=== PATIENT | male | born 1960 | race African-American/Black ===

== ENCOUNTER 2017-03-28 09:44 | Day surgery (SDC) | payer BC ==
[2017-03-27 10:55] VITALS: Ht 175.3 cm; Wt 72.0 kg
[~2017-03-28] VITALS: Ht 175.3 cm; Wt 72.0 kg
[2017-03-28 11:25] VITALS: BP 119/81; PULSE 70; RESP 16
--- NOTE | 2017-03-28 11:36 | HPN ---
Date/Time of Note Date/Time of Note DATE: 03/28/17 TIME: 11:36 Interval H&P Admission Note Pt. seen H&P reviewed: No system changes TIARRA ORTIZ MD Mar 28, 2017 11:36
[2017-03-28 11:40] LABS: ADD SCAN DIFF NO
[2017-03-28] MEDS ORDERED: [UNRECOGNIZED DRUG - CODE] (11:56)
[2017-03-28] MEDS ORDERED: API (11:56)
[2017-03-28] MEDS ORDERED: NPH SQ (11:56)
[2017-03-28] MEDS ORDERED: CALC667C PO (11:56)
[2017-03-28] MEDS ORDERED: INSU100I17 SQ (11:56)
[2017-03-28] MEDS ORDERED: HYDR10TA36 PO (11:56)
[2017-03-28] MEDS ORDERED: DIPH1TAB25 PO (11:56)
[2017-03-28] MEDS ORDERED: ASPI-664 PO (11:56)
[2017-03-28] MEDS ORDERED: NEPH PO (11:56)
[2017-03-28] MEDS ORDERED: DILT120C62 PO (11:56)
[2017-03-28] MEDS ORDERED: FURO40TA4 PO (11:56)
[2017-03-28 12:01] LABS: ABNORMAL IP MESSAGE 1; BASOPHILS % 0.5 % (0.0-2.0); EOSINOPHILS # 0.3 10^3/ul (0.0-0.5); EOSINOPHILS % 4.1 % (0.0-7.0); HEMATOCRIT 34.1 % (42.0-52.0); HEMOGLOBIN 10.6 g/dl (14.0-18.0); LYMPHOCYTES # 3.3 10^3/ul (0.8-2.9); LYMPHOCYTES % 40.4 % (15.0-51.0); MEAN CORPUSCULAR HEMOGLOBIN 29.9 pg (29.0-33.0); MEAN CORPUSCULAR HGB CONC 31.1 g/dl (32.0-37.0); MEAN CORPUSCULAR VOLUME 96.3 fl (82.0-101.0); MEAN PLATELET VOLUME 10.3 fl (7.4-10.4); MONOCYTES % 11.9 % (0.0-11.0); NEUTROPHIL # 3.5 10^3/ul (1.6-7.5); NEUTROPHILS % 42.5 % (39.0-77.0); NUCLEATED RED BLOOD CELLS # 0.8 10^3/ul (0.0-0.0); NUCLEATED RED BLOOD CELLS% 9.3 /100WBC (0.0-0.0); PLATELET COUNT 194 10^3/UL (140-415); RED BLOOD COUNT 3.54 10^6/ul (4.70-6.10); RED CELL DISTRIBUTION WIDTH 22.8 % (11.5-14.5); WHITE BLOOD COUNT 8.2 10^3/ul (4.8-10.8)
[2017-03-28 12:05] LABS: ALBUMIN 4.4 g/dl (3.3-4.9); ALBUMIN/GLOBULIN RATIO 1.22
[2017-03-28 12:07] LABS: CALCIUM 8.4 mg/dl (8.4-10.2); CREATININE 6.62 mg/dl (0.61-1.24)
[2017-03-28 12:08] LABS: INR 1.15; POTASSIUM 5.7 mmol/L (3.5-5.1); PROTIME 14.7 Sec (12.2-14.2); PT RATIO 1.1
[2017-03-28] MEDS ORDERED: DEXTROSE 50% 50 ML SYRINGE ONE (13:39)
[2017-03-28] MEDS ORDERED: DEXTROSE 50% 50 ML SYRINGE IV ONE (14:00)
[2017-03-28 14:10] LABS: PARTIAL THROMBOPLASTIN TIME 35.2 Sec (25.0-35.0)
[2017-03-28 14:58] VITALS: BP 143/105; PULSE 72; RESP 16
--- NOTE | 2017-03-29 17:00 | RADRPT ---
Vent Rate: 65 bpm RR Interval: 0 msec MT Interval: 136 msec QRS Duration: 84 msec QT Interval: 476 msec QTC Interval: 495 msec P-R-T [place]: 63 - 34 - 16 degrees Normal sinus rhythm Abnormal ECG Nonspecific ST-T changes No previous tracing available for comparison Electronically Signed By: Diego Keller [id number]
== END 2017-03-28 15:05 | disposition home or self-care (01) ==
LOC: SDS 09:44
PROVIDERS: ATTEND Surgery Vascular Surgery
DX: I12.0 Hypertensive chronic kidney disease with stage 5 chronic kidney disease or end stage renal disease (principal); N18.6 End stage renal disease; Z53.9 Procedure and treatment not carried out, unspecified reason; E11.9 Type 2 diabetes mellitus without complications
CPT/HCPCS: 80053; 82962; 85025; 85610; 85730; 93005; Z7610

== ENCOUNTER 2017-06-13 08:15 | Day surgery (SDC) | payer BC ==
[~2017-06-13] VITALS: Ht 175.3 cm; Wt 53.0 kg
[2017-06-13] VITALS (7 sets, daily range): BP systolic 127–150; BP diastolic 87–98; PULSE 61–71; RESP 13–26; Ht 175.3 cm; Wt 53.0 kg
[~2017-06-13 08:15] MED LIST: API; ASPI-664 PO; CALC667C PO; CEFAZOLIN 1 GM INJ ONE; DILT120C62 PO; DIPH1TAB25 PO; FURO40TA4 PO; HYDR10TA36 PO; INSU100I17 SQ; LIDOCAINE 2% (SDV) 5 ML INJ ONE; NEPH PO; NPH SQ; [UNRECOGNIZED DRUG - CODE]
--- NOTE | 2017-06-13 09:06 | HPN ---
Date/Time of Note Date/Time of Note DATE: 06/13/17 TIME: 09:05 Interval H&P Admission Note Pt. seen H&P reviewed: No system changes TIARRA ORTIZ MD Jun 13, 2017 09:05
[2017-06-13] MEDS ORDERED: VIT1TABL46 PO (09:21)
[2017-06-13] MEDS ORDERED: FURO40TA4 PO (09:21)
[2017-06-13] MEDS ORDERED: DILT120C65 PO (09:21)
[2017-06-13] MEDS ORDERED: GABA300C16 PO (09:22)
[2017-06-13] MEDS ORDERED: HYDR-3670 PO (09:22)
[2017-06-13] MEDS ORDERED: THROMBIN 5000 UNIT VIAL ONE ×2 (09:23→09:24)
[2017-06-13] MEDS ORDERED: LIDOCAINE 1% (MPF) 30 ML INJ ONE (09:23)
[2017-06-13] MEDS ORDERED: HEPARIN 1000 UNITS/ML 10 ML INJ ONE (09:23)
[2017-06-13] MEDS ORDERED: GELATIN SIZE 100 SPONGE ONE (09:23)
[2017-06-13] MEDS ORDERED: HEPARIN 1000 UNITS/ML 10 ML INJ IRR ONE (09:37)
--- NOTE | 2017-06-13 09:57 | RADRPT ---
PROCEDURE: Chest Radiograph. CLINICAL INDICATION: Preop TECHNIQUE: Single frontal chest radiograph. COMPARISON: None available FINDINGS: A right chest wall tunneled hemodialysis catheter is in place with distal tip in the region of the c avoatrial junction. Heart size is within normal limits. Atherosclerotic calcifications are present . No infiltrate or effusion is seen. The bones are intact. IMPRESSION: 1. No evidence of acute cardiopulmonary disease. 2. Atherosclerotic vascular disease. RPTAT: KK .Rodrick Teran MD, Date Time Electronically viewed and signed by .Rodrick Teran MD, on 06/13/2017 09:57 .B/
[2017-06-13] MEDS ORDERED: DEXTROSE 50% 50 ML SYRINGE IV ONE (10:00)
[2017-06-13] MEDS ORDERED: APIDRA (10:01)
[2017-06-13] MEDS ORDERED: LANTUS (10:01)
[2017-06-13 10:09] LABS: BASOPHILS % 0.4 % (0.0-2.0); EOSINOPHILS # 0.1 10^3/ul (0.0-0.5); HEMATOCRIT 35.9 % (42.0-52.0); HEMOGLOBIN 11.5 g/dl (14.0-18.0); INR 0.97; LYMPHOCYTES # 2.8 10^3/ul (0.8-2.9); LYMPHOCYTES % 29.3 % (15.0-51.0); MEAN CORPUSCULAR VOLUME 90.4 fl (82.0-101.0); MEAN PLATELET VOLUME 11.2 fl (7.4-10.4); MONOCYTES % 10.3 % (0.0-11.0); NEUTROPHILS % 58.7 % (39.0-77.0); PARTIAL THROMBOPLASTIN TIME 34.2 Sec (25.0-35.0); PLATELET COUNT 190 10^3/UL (140-415); PROTIME 12.9 Sec (12.2-14.2); RED BLOOD COUNT 3.97 10^6/ul (4.70-6.10); RED CELL DISTRIBUTION WIDTH 19.1 % (11.5-14.5); WHITE BLOOD COUNT 9.5 10^3/ul (4.8-10.8)
[2017-06-13 10:12] LABS: ALBUMIN 3.8 g/dl (3.3-4.9); ALBUMIN/GLOBULIN RATIO 0.84; TOTAL PROTEIN 8.3 g/dl (6.1-8.1)
[2017-06-13 10:22] LABS: CALCIUM 8.6 mg/dl (8.4-10.2); CREATININE 6.71 mg/dl (0.61-1.24); POTASSIUM 4.2 mmol/L (3.5-5.1)
[2017-06-13] MEDS ORDERED: LIDOCAINE 2%/EPI 30 ML INJ ONE (10:28)
[2017-06-13] MEDS ORDERED: FENTAnyl 50 MCG/ML VIAL ONE (10:28)
[2017-06-13] MEDS ORDERED: ROPIVACAINE 0.5 % 30 ML VIAL ONE (10:28)
[2017-06-13] MEDS ORDERED: hydrALAzine 20 MG INJ ONE (10:56)
[2017-06-13] MEDS ORDERED: FENTAnyl 50 MCG/ML VIAL IV PRN (11:30)
[2017-06-13] MEDS ORDERED: hydrALAzine 20 MG INJ IV PRN (11:30)
[2017-06-13] MEDS ORDERED: DIPHENHYDRAMINE 50 MG INJ IV PRN (11:30)
[2017-06-13] MEDS ORDERED: ONDANSETRON 4 MG INJ IV PRN (11:30)
[2017-06-13] MEDS ORDERED: ALBUTEROL 0.083% (NEB) 2.5 MG/3 ML AMP HHN PRN (11:30)
[2017-06-13] MEDS ORDERED: MEPERIDINE 25 MG INJ IV PRN (11:30)
--- NOTE | 2017-06-13 12:16 | SIPON ---
Date/Time of Note Date/Time of Note DATE: 06/13/17 TIME: 12:10 Operative Report Preoperative Diagnosis ESRD Postoperative Diagnosis same Operation/Procedure Performed L arm brachiobasilic AVF creation Surgeon: TIARRA ORTIZ MD Anesthesia Type: other Estimated Blood Loss: 50 - 100 ml's Transfusion Required: no Specimen: none Grafts/Implants: none Complications: no TIARRA ORTIZ MD Jun 13, 2017 12:16
--- NOTE | 2017-06-13 13:22 | OPR ---
DATE OF OPERATION: 06/13/2017 PREOPERATIVE DIAGNOSIS: End-stage renal disease. POSTOPERATIVE DIAGNOSIS: End-stage renal disease. OPERATION PERFORMED: Creation of left arm brachial basilic arteriovenous fistula. SURGEON: Dr. Jason Noonan. ANESTHESIA: A scalene block. ESTIMATED BLOOD LOSS: 50 cc. COMPLICATIONS: No intraprocedural complications. INDICATIONS: This is a 56-year-old gentleman with end-stage renal disease, hypertension. He is on dialysis via PermCath. We had his mapped the vein from his left arm. His veins are not usable except for the upper arm basilic vein, some are all sclerotic. I brought him today for creation of left brachial basilic AV fistula as a 1st stage and he will need superficialization of the vein at a later date once the vein has matured and I discussed that with he and his prior procedure. OPERATIVE PROCEDURE: Patient was brought into the operating room, and placed on the table in supine position. After placement of a scalene block, the left arm was prepped and draped in usual sterile fashion. I made an incision beginning over the brachial artery at the elbow and extending it medially on top of the basilic vein in the very lower portion of the upper arm. I carefully dissected out the basilic vein and ligated it distally with surgical clips and divided it. I cut the connective tissue overlying the brachial artery pulse. I clamped the brachial artery proximally and distally, made an 8 mm long anterior arteriotomy, spatulated the end of the vein to fit the arteriotomy and then anastomosed the end of the vein inside of the artery using 6-0 Prolene suture in a running standard vascular surgical fashion. I removed the clamps. There was a good thrill. There was good hemostasis. I closed the skin incision in 2 layers using an inner layer of 3-0 Vicryl and an outer layer of 4-0 Monocryl subcuticular suture. Sterile dressing was applied. The patient was then transferred to recovery room in stable condition. Tolerated procedure well without complication. Hand was warm and pink. There was good radial pulse. Dictated By: Jason Noonan MD /sara/andrew /Document#: [id number]
--- NOTE | 2017-06-13 17:13 | RADRPT ---
Vent Rate: 67 bpm RR Interval: 0 msec AR Interval: 140 msec QRS Duration: 88 msec QT Interval: 474 msec QTC Interval: 500 msec P-R-T [place]: 77 - 43 - 45 degrees Normal sinus rhythm Prolonged QT Abnormal ECG Electronically Signed By: Pastor Carvalho [id number]
== END 2017-06-13 13:30 | disposition home or self-care (01) ==
LOC: SDS 08:15
PROVIDERS: ATTEND Surgery Vascular Surgery
DX: I12.0 Hypertensive chronic kidney disease with stage 5 chronic kidney disease or end stage renal disease (principal); N18.6 End stage renal disease; E11.9 Type 2 diabetes mellitus without complications
CPT/HCPCS: 36821; 71010; 80053; 82962; 85025; 85610; 85730; 93005; J0360; J0690; J1644; J2795; J3010; Z7512; Z7610; C1725

== ENCOUNTER 2017-09-26 09:12 | Inpatient (IN) | payer BC ==
[2017-09-26] VITALS (15 sets, daily range): BP systolic 122–188; BP diastolic 61–102; PULSE 59–77; RESP 16–20; Ht 175.3 cm; Wt 55.7 kg
[~2017-09-26] VITALS: Ht 175.3 cm; Wt 55.7 kg
[~2017-09-26 09:12] MED LIST changes: -API; +APIDRA; -ASPI-664 PO; -CALC667C PO; -CEFAZOLIN 1 GM INJ ONE; -DILT120C62 PO; +DILT120C65 PO; -DIPH1TAB25 PO; +GABA300C16 PO; +HYDR-3670 PO; -HYDR10TA36 PO; -INSU100I17 SQ; +LANTUS; -LIDOCAINE 2% (SDV) 5 ML INJ ONE; -NEPH PO; -NPH SQ; +VIT1TABL46 PO; -[UNRECOGNIZED DRUG - CODE]
[2017-09-26] MEDS ORDERED: NOVO3I SC (10:24)
--- NOTE | 2017-09-26 10:28 | RADRPT ---
PROCEDURE: XR Chest. CLINICAL INDICATION: Preoperative TECHNIQUE: Single frontal view of the chest was obtained COMPARISON: CHEST 06/13/2017 FINDINGS: The heart and mediastinum are within normal limits. There is a right-sided Perma-Cath in place. There is mild right lower lobe linear atelectasis. The lungs are otherwise clear. There is no pleural effusion or pneumothorax. RPTAT: AA IMPRESSION: No acute disease. Mild right lower lobe linear atelectasis. .Daryl Leone MD, Date Time Electronically viewed and signed by .Daryl Leone MD, on 09/26/2017 10:28 .S/
[2017-09-26 10:50] LABS: BASOPHILS % 0.5 % (0.0-2.0); EOSINOPHILS % 0.6 % (0.0-7.0); HEMATOCRIT 27.8 % (42.0-52.0); HEMOGLOBIN 8.9 g/dl (14.0-18.0); LYMPHOCYTES % 30.2 % (15.0-51.0); MEAN CORPUSCULAR HEMOGLOBIN 29.9 pg (29.0-33.0); MEAN CORPUSCULAR VOLUME 93.3 fl (82.0-101.0); MEAN PLATELET VOLUME 12.7 fl (7.4-10.4); MONOCYTE # 0.9 10^3/ul (0.3-0.9); MONOCYTES % 13.6 % (0.0-11.0); NEUTROPHIL # 3.6 10^3/ul (1.6-7.5); NEUTROPHILS % 54.6 % (39.0-77.0); PLATELET COUNT 124 10^3/UL (140-415); RED BLOOD COUNT 2.98 10^6/ul (4.70-6.10); WHITE BLOOD COUNT 6.6 10^3/ul (4.8-10.8)
[2017-09-26] MEDS ORDERED: FURO40TA4 PO (10:50)
[2017-09-26] MEDS ORDERED: HYDR-3670 PO (10:50)
[2017-09-26] MEDS ORDERED: GABA300C16 PO (10:50)
[2017-09-26 11:00] LABS: HOLD TRANSMISSIONS 1
[2017-09-26] MEDS ORDERED: INSULIN ASPART [NOVOLOG] 3 ML PEN SC ONE ×2 (11:00→12:30)
[2017-09-26 11:06] LABS: INR 1.13; PROTIME 14.7 Sec (11.9-14.9); PT RATIO 1.1
[2017-09-26 11:10] LABS: ALBUMIN 2.8 g/dl (3.3-4.9); ALBUMIN/GLOBULIN RATIO 0.8; BILIRUBIN,INDIRECT 0.1 mg/dl (0-1.1); BILIRUBIN,TOTAL 0.1 mg/dl (0.2-1.3); TOTAL PROTEIN 6.3 g/dl (6.1-8.1)
[2017-09-26 11:18] LABS: POTASSIUM 4.5 mmol/L (3.5-5.1)
[2017-09-26 11:19] LABS: CALCIUM 7.6 mg/dl (8.4-10.2); CREATININE 9.97 mg/dl (0.61-1.24)
[2017-09-26 11:23] LABS: PARTIAL THROMBOPLASTIN TIME 38.8 Sec (25.0-35.0)
[2017-09-26] MEDS ORDERED: INSULIN REGULAR, HUMAN 100 UNIT/1 ML 3ML VIAL ONE (11:59)
[2017-09-26] MEDS ORDERED: LIDOCAINE 1% (MPF) 30 ML INJ INJ ONE (12:00)
[2017-09-26] MEDS ORDERED: HEPARIN 1000 UNITS/ML 10 ML INJ IRR ONE ×2 (12:00→13:01)
[2017-09-26] MEDS ORDERED: ROPIVACAINE 0.2% 20 ML VIAL ONE (12:09)
[2017-09-26] MEDS ORDERED: MIDAZOLAM 1 MG/ML 2 ML INJ ONE (12:09)
[2017-09-26] MEDS ORDERED: PROPOFOL 20 ML ONE ×2 (12:24→13:10)
[2017-09-26] MEDS ORDERED: FENTAnyl 50 MCG/ML VIAL ONE (12:44)
[2017-09-26] MEDS ORDERED: CEFAZOLIN 1 GM INJ ONE (13:10)
[2017-09-26] MEDS ORDERED: LIDOCAINE 1% (MPF) 30 ML INJ ONE (13:20)
[2017-09-26] MEDS ORDERED: HEPARIN 1000 UNITS/ML 10 ML INJ ONE (13:20)
[2017-09-26] MEDS ORDERED: LABETALOL HCL 20MG INJ IV PRN (13:30)
[2017-09-26] MEDS ORDERED: HYDROmorphONE (0.2 MG/ML) 10ML SYG IV PRN ×3 (13:30)
[2017-09-26] MEDS ORDERED: hydrALAzine 20 MG INJ IV PRN (13:30)
[2017-09-26] MEDS ORDERED: ONDANSETRON 4 MG INJ IV PRN ×2 (13:30→15:30)
--- NOTE | 2017-09-26 13:39 | SIPON ---
Date/Time of Note Date/Time of Note DATE: 09/26/17 TIME: 13:38 Operative Report Preoperative Diagnosis ESRD Postoperative Diagnosis same Operation/Procedure Performed L arm AV graft creation Surgeon see signature line shop assistant none Anesthesia: MAC Estimated blood loss: 10 - 50 ml's Transfusion Required none Specimen none Grafts/Implants 6mm Artegraft Complications none TIARRA ORTIZ MD Sep 26, 2017 13:39
--- NOTE | 2017-09-26 14:07 | OPR ---
DATE OF OPERATION: 09/26/2017 PREOPERATIVE DIAGNOSIS: End-stage renal disease. POSTOPERATIVE DIAGNOSIS: End-stage renal disease. PROCEDURE PERFORMED: Creation of left upper arm AV graft. SURGEON: Tiarra Noonan MD ANESTHESIA: Regional block with some local. ESTIMATED BLOOD LOSS: Minimal. COMPLICATIONS: No intraprocedural complications. INDICATIONS: This is a 57-year-old diabetic hypertensive gentleman with end-stage renal disease on dialysis via a Perm-A-Cath. He has a failed left arm AV fistula. I brought him in today for creati on of a left arm AV graft. PROCEDURE: The patient was brought to the operating room and placed on the table in supine position . Left arm was prepped and draped in the usual sterile fashion. I made 2 incisions in the upper ar m, one just above the elbow longitudinally over the brachial artery and one in the upper arm over th e axillary vein. I gave him about 10 mL of 1% Xylocaine in the skin prior to making the incisions. I then dissected out the brachial artery just above the elbow. There was a good artery, soft, good caliber. In the upper arm I dissected out the axillary vein, it was a good 5-6 mm vein that was pa tent. I then tunneled a 6 mm Artegraft between the 2 incisions over the bicep more anterior and lat erally using a Nan-Wick tunneler. I did the venous anastomosis first. I clamped the axillary vei n proximally and distally, made about a centimeter of the half long venotomy. Spatulated the end of the graft to fit the venotomy and then anastomosed the distal end of the graft to the side of the v ein using 6-0 Prolene suture in a running standard vascular surgical fashion. I removed the clamps. There was good backflow and it flushed easily. I then directed my attention to the arterial limb. I clamped the brachial artery proximally and distally and made an anterior arteriotomy 8 mm in [facility]. I then cut the end of the graft to fit the arteriotomy and then anastomosed the proximal end o f the graft to the side of the artery using 6-0 Prolene suture in a running standard vascular surgic al fashion. I removed the clamps. There was a good thrill. There was good hemostasis. I closed t he skin incision in 2 layers using an inner layer of 3-0 Vicryl and an outer layer of 4-0 Monocryl s ubcuticular sutures. Sterile dressing was applied and the patient was then transferred to recovery room in stable condition. He tolerated the procedure well without any complications. His sugars lyn ve been persistently elevated so I am going to ask the hospitalist to admit him and get his blood cueto gars under control. Dictated By: TIARRA BISHOP/MONICA Conf#: [id number] DID#: [id number]
[2017-09-26] MEDS ORDERED: HYDROCODONE/APAP (5/325) TAB PO PRN (15:30)
[2017-09-26] MEDS ORDERED: DOCUSATE SODIUM 100 MG CAP PO PRN (15:30)
[2017-09-26] MEDS ORDERED: morphine 2 MG INJ IV PRN (15:30)
[2017-09-26] MEDS ORDERED: NACL 0.9% 3 ML SYG IV SCH (15:30)
[2017-09-26] MEDS ORDERED: ACETAMINOPHEN 325 MG TAB PO PRN (15:30)
--- NOTE | 2017-09-26 15:31 | HP ---
Date/Time of Note Date/Time of Note DATE: 09/26/17 TIME: 15:23 Assessment/Plan VTE Prophylaxis VTE Prophylaxis Intervention: SCD's Lines/Catheters IV Catheter Type (from Nrs): Peripheral IV Assessment/Plan Chief Complaint/Hosp Course 1. 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 Diabetes-sugars out of control Check an A1c Will start weight-based insulin Sliding scale 3. Hypertension Resume home hydralazine 4. Anemia likely secondary to end-stage renal disease Monitor Prophylaxis: SCDs Problems: HPI/ROS Admit Date/Time Admit Date/Time Sep 26, 2017 at 14:03 Hx of Present Illness Patient is 57-year-old male with a history of insulin dependent diabetes, hypertension as well as end-stage renal disease on dialysis for several years now. Patient receives dialysis Tuesdays and Saturdays, patient does have a history of failed fistula placement and had a repeat AV fistula placement with vascular surgery today. Patient has been receiving dialysis via permacath, he is a poor historian and history is obtained from his sister who was bedside. Patient's sugars are notably elevated in the recovery room, patient has no complaints at this time. ROS Subjective hx not possible: other (Poor historian) PMH/Family/Social Past Medical History As per HPI Past Surgical History History of fistula placement 2 Family History Significant Family History: no pertinent family hx Social History Alcohol Use: heavy (History of heavy alcohol abuse) Smoking Status: Current every day smoker Drug Use: other (History of drug use exact drugs unknown) Exam/Review of Systems Vital Signs Vitals Vital Signs Date Time Temp Pulse Resp B/P Pulse Ox O2 Delivery O2 Flow Rate FiO2 09/26/17 13:53 97.6 09/26/17 11:57 62 16 158/102 99 Room Air Exam Constitutional: alert, frail Respiratory: clear to auscultation Cardiovascular: regular rate and rhythm Gastrointestinal: soft, No distended Musculoskeletal: nl extremities to inspection Labs Result Diagram: 09/26/17 1027 09/26/17 1027 TRAVIS ARMENTA Sep 26, 2017 15:31
[2017-09-26] MEDS: INSULIN ASPART [NOVOLOG] 3 ML PEN SC SCH ×3 (17:55→21:00)
[2017-09-26] MEDS ORDERED: INSULIN GLARGINE [LANtus] 3 ML PEN SC SCH (20:00)
[2017-09-26] MEDS ORDERED: Discontinue current oral sulfonylureas (glyburide, glipizide, and/or glimepiride) prior to XX ONE (22:00)
[2017-09-26] MEDS ORDERED: HYPOGLYCEMIA PROTOCOL when Glucose is <70 mg/dL or symptomatic <90 mg/dL. XX ONE (22:00)
[2017-09-26] MEDS ORDERED: GLUCOSE GEL 15 GRAM TUBE ONE (22:01)
[2017-09-26] MEDS: GABAPENTIN 300 MG CAP PO SCH (22:20)
[2017-09-26] MEDS ORDERED: DEXTROSE 50% 50 ML SYRINGE IV PRN ×2 (22:30)
[2017-09-26] MEDS ORDERED: GLUCAGON 1 MG INJ IM PRN (22:30)
[2017-09-26] MEDS ORDERED: GLUCOSE GEL 15 GRAM TUBE PO PRN ×2 (22:30)
[2017-09-26] MEDS ORDERED: GLUCOSE GEL 15 GRAM TUBE BUCCAL PRN (22:30)
[2017-09-27] VITALS (11 sets, daily range): BP systolic 105–163; BP diastolic 55–106; PULSE 69–75; RESP 18
[2017-09-27] MEDS ORDERED: ACCU-CHEK XX SCH ×2 (02:00)
--- NOTE | 2017-09-27 02:41 | CONS ---
DATE OF ADMISSION: 09/26/2017 DATE OF CONSULTATION: TYPE OF CONSULTATION: Nephrology. REASON FOR CONSULTATION: End-stage renal disease. PHYSICIAN REQUESTING CONSULT: Dr. Nichol Husain. HISTORY OF PRESENT ILLNESS: This is a 57-year-old male with a past medical history of end-stage mary jane al disease on dialysis Friday, , Friday. Last hemodialysis was Friday. History of diab etes, hypertension, who presents to [facility] for an AV fistula placement. The p atdiamond underwent surgical placement of AV graft in the left upper extremity by Dr. Noonan. Postopera tively, the patient was transferred to Med/Surg for further evaluation. The patient denies any acti ve chest pain, fevers, chills, nausea, vomiting. PAST MEDICAL HISTORY: History of hypertension, diabetes, end-stage renal disease. FAMILY HISTORY: Noncontributory. SOCIAL HISTORY: Does not drink, smoke or do drugs. MEDICATIONS: The patient's medications have been reviewed. REVIEW OF SYSTEMS: A 14-point review of systems was conducted. Pertinent positives stated in HPI, otherwise negative. PHYSICAL EXAMINATION: VITAL SIGNS: Blood pressure is 168/70, respirations 16, pulse 80. Temperature 97.6. HEENT: Head is normocephalic. NECK: Supple. HEART: Regular rate. LUNGS: Show diminished breath sounds at the base. ABDOMEN: Soft, nontender to palpation. No rebound or guarding. EXTREMITIES: Negative for clubbing, cyanosis, no edema. DERMATOLOGIC: No rashes. MUSCULOSKELETAL: No joint effusions. NEUROLOGIC: No focal deficits. LABORATORY DATA: Shows sodium 130, potassium 4.5, chloride 100, bicarbonate 14, BUN 36, creatinine 5.97, glucose is 690, white count 6.6, hemoglobin 9, hematocrit 27.8, platelets 124. ASSESSMENT AND PLAN: This is a 57-year-old male who presents with: 1. End-stage renal disease. The patient is on hemodialysis Friday, and Friday with acc ess of a PermCath. Last hemodialysis was Friday. Plan for dialysis today. Will dialyze for 3 grady rs on 3 K bath, calcium 2.5. Anticipate hemodialysis tomorrow. 2. Access. The patient is status post AV graft placement. 3. Hypertension. Continue current blood pressure regimen. We will ultrafiltrate with hemodialysis . 4. Anemia. Monitor hemoglobin and hematocrit levels. Will give Epogen as needed. 5. Mineral bone disorder. Continue to monitor calcium and phosphorus levels. Will give phosphate binders as needed. 6. Diabetes. Continue current insulin regimen. Thank you, Dr. Husain, for this interesting consult. It will be a pleasure to follow up patient wi th you throughout the hospital course. Dictated By: CRISTINE LOCKE DO NR/NTS Conf#: [id number] DID#: [id number] CC: NICHOL HUSAIN MD;*EndCC*
[2017-09-27 05:51] LABS: ABNORMAL IP MESSAGE 1; BASOPHILS % 0.5 % (0.0-2.0); EOSINOPHILS # 0.1 10^3/ul (0.0-0.5); EOSINOPHILS % 0.8 % (0.0-7.0); HEMATOCRIT 32.4 % (42.0-52.0); HEMOGLOBIN 11.1 g/dl (14.0-18.0); LYMPHOCYTES # 1.4 10^3/ul (0.8-2.9); LYMPHOCYTES % 21.4 % (15.0-51.0); MEAN CORPUSCULAR HEMOGLOBIN 30.2 pg (29.0-33.0); MEAN CORPUSCULAR HGB CONC 34.3 g/dl (32.0-37.0); MONOCYTE # 0.6 10^3/ul (0.3-0.9); MONOCYTES % 8.9 % (0.0-11.0); NEUTROPHIL # 4.4 10^3/ul (1.6-7.5); NEUTROPHILS % 68.1 % (39.0-77.0); PLATELET COUNT 89 10^3/UL (140-415); POSITIVE DIFF @See below; RED BLOOD COUNT 3.68 10^6/ul (4.70-6.10); RED CELL DISTRIBUTION WIDTH 18.4 % (11.5-14.5); WHITE BLOOD COUNT 6.4 10^3/ul (4.8-10.8)
[2017-09-27 06:00] LABS: CHOL/HDL RATIO 1.5 RATIO; CREATININE 7.2 mg/dl (0.61-1.24); MAGNESIUM 2.1 mg/dl (1.7-2.5); PHOSPHORUS 5.9 mg/dl (2.5-4.9); POTASSIUM 4.4 mmol/L (3.5-5.1)
[2017-09-27] MEDS ORDERED: FUROSEMIDE 40 MG TAB PO SCH (06:00)
[2017-09-27 06:15] LABS: MEAN PLATELET VOLUME 11.6 fl (7.4-10.4)
[2017-09-27] MEDS: GABAPENTIN 300 MG CAP PO SCH ×2 (09:05→13:03)
[2017-09-27] MEDS: INSULIN ASPART [NOVOLOG] 3 ML PEN SC SCH ×3 (09:10→13:08)
--- NOTE | 2017-09-27 09:12 | CONS ---
Date/Time of Note Date/Time of Note DATE: 09/27/17 TIME: 09:10 Consult Date/Type/Reason Admit Date/Time Sep 26, 2017 at 14:03 Initial Consult Date Subjective pt. seen and examined on hd this am PE: HEENT: Head is normocephalic. NECK: Supple. HEART: Regular rate. LUNGS: Show diminished breath sounds at the base. ABDOMEN: Soft, nontender to palpation. No rebound or guarding. EXTREMITIES: Negative for clubbing, cyanosis, no edema. DERMATOLOGIC: No rashes. MUSCULOSKELETAL: No joint effusions. NEUROLOGIC: No focal deficits. Objective Vital Signs Date Time Temp Pulse Resp B/P Pulse Ox O2 Delivery O2 Flow Rate FiO2 09/27/17 07:36 99.3 73 18 142/95 95 09/27/17 05:58 Room Air 09/26/17 16:30 2.0 Intake and Output 09/26/17 09/26/17 09/27/17 15:00 23:00 07:00 Intake Total 100 ml 700 ml 600 ml Output Total 20 ml 2500 ml Balance 80 ml -1800 ml 600 ml Results/Medications Result Diagram: 09/27/17 0434 09/27/17 0434 Results 24 hrs Laboratory Tests Test 09/26/17 10:27 09/26/17 11:54 09/26/17 12:46 09/26/17 13:06 White Blood Count 6.6 # Red Blood Count 2.98 #L Hemoglobin 8.9 #L Hematocrit 27.8 #L Mean Corpuscular Volume 93.3 Mean Corpuscular Hemoglobin 29.9 Mean Corpuscular Hemoglobin Concent 32.0 Red Cell Distribution Width 19.0 H Platelet Count 124 #L Mean Platelet Volume 12.7 H Neutrophils % 54.6 Lymphocytes % 30.2 Monocytes % 13.6 H Eosinophils % 0.6 Basophils % 0.5 Nucleated Red Blood Cells % 0.0 Neutrophils # 3.6 Lymphocytes # 2.0 Monocytes # 0.9 Eosinophils # 0.0 Basophils # 0.0 Nucleated Red Blood Cells # 0.0 CBC Results Faxed/Phoned 1 *H Prothrombin Time 14.7 Prothrombin Time Ratio 1.1 INR International Normalized Ratio 1.13 Activated Partial Thromboplast Time 38.8 H Sodium Level 130 L Potassium Level 4.5 Chloride Level 100 Carbon Dioxide Level 14 L Anion Gap 21 H Blood Urea Nitrogen 36 H Creatinine 9.97 H Glucose Level 690 *H Calcium Level 7.6 L Total Bilirubin 0.1 L Direct Bilirubin 0.00 Indirect Bilirubin 0.1 Aspartate Amino Transf (AST/SGOT) 23 Alanine Aminotransferase (ALT/SGPT) 40 Alkaline Phosphatase 114 Total Protein 6.3 Albumin 2.8 L Globulin 3.50 H Albumin/Globulin Ratio 0.80 Bedside Glucose 489 *H 484 *H 423 *H Test 09/26/17 13:49 09/26/17 14:23 09/26/17 17:42 09/26/17 21:54 Bedside Glucose 403 *H 389 H 108 39 *L Test 09/26/17 22:06 09/26/17 22:29 09/26/17 22:47 09/27/17 02:30 Bedside Glucose 38 *L 86 108 209 Test 09/27/17 04:34 09/27/17 08:38 White Blood Count 6.4 Red Blood Count 3.68 #L Hemoglobin 11.1 #L Hematocrit 32.4 L Mean Corpuscular Volume 88.0 Mean Corpuscular Hemoglobin 30.2 Mean Corpuscular Hemoglobin Concent 34.3 Red Cell Distribution Width 18.4 H Platelet Count 89 #L Mean Platelet Volume 11.6 H Neutrophils % 68.1 Lymphocytes % 21.4 Monocytes % 8.9 Eosinophils % 0.8 Basophils % 0.5 Nucleated Red Blood Cells % 0.0 Neutrophils # 4.4 Lymphocytes # 1.4 Monocytes # 0.6 Eosinophils # 0.1 Basophils # 0.0 Nucleated Red Blood Cells # 0.0 Sodium Level 137 Potassium Level 4.4 Chloride Level 105 Carbon Dioxide Level 21 Anion Gap 15 Blood Urea Nitrogen 24 #H Creatinine 7.20 #H Glucose Level 254 #H Hemoglobin A1c 10.3 H Calcium Level 8.0 L Phosphorus Level 5.9 H Magnesium Level 2.1 Triglycerides Level 105 Cholesterol Level 75 L LDL Cholesterol, Calculated 4 HDL Cholesterol 50 Cholesterol/HDL Ratio 1.5 Bedside Glucose 329 H Medications Current Medications Ondansetron HCl (Zofran Inj) 4 mg Q6H PRN IV NAUSEA AND/OR VOMITING; Start 09/26/17 at 15:30 Acetaminophen (Tylenol Tab) 650 mg Q6H PRN PO PAIN LEVEL 1-3 OR FEVER; Start 09/26/17 at 15:30 Acetaminophen/ Hydrocodone Bitart ([place] (5/325)) 1 tab Q6H PRN PO MODERATE PAIN LEVEL 4-6; Start 09/26/17 at 15:30 Morphine Sulfate (morphine) 2 mg Q4H PRN IV SEVERE PAIN LEVEL 7-10; Start 09/26 at 15:30 Docusate Sodium (Colace) 100 mg Q12H PRN PO CONSTIPATION; Start 09/26/17 at 15: 30 Furosemide (Lasix) 40 mg DAILY@06 PO Last administered on 09/27/17 05:58; Admin Dose 40 MG; Start 09/27/17 at 06:00 Gabapentin (Neurontin) 300 mg TID PO Last administered on 09/26/17 22:20; Admin Dose 300 MG; Start 09/26/17 at 21:00 Hydralazine HCl (Apresoline) 10 mg Q6 PO Last administered on 09/27/17 05:58; Admin Dose 10 MG; Start 09/26/17 at 18:00 Diagnostic Test (Pha) (Accu-Chek) 1 ea 02 XX ; Start 09/27/17 at 02:00 Insulin Glargine (Lantus) 11 unit DAILY@20 SC ; Start 09/26/17 at 20:00 Diagnostic Test (Pha) (Accu-Chek) 1 ea 02 XX ; Start 09/27/17 at 02:00 Miscellaneous Information 1 ea NOTE XX ; Start 09/26/17 at 22:30 Glucose (Glutose) 15 gm Q15M PRN PO DECREASED GLUCOSE; Start 09/26/17 at 22:30 Glucose (Glutose) 22.5 gm Q15M PRN PO DECREASED GLUCOSE; Start 09/26/17 at 22: 30 Dextrose (D50w Syringe) 25 ml Q15M PRN IV DECREASED GLUCOSE; Start 09/26/17 at 22:30 Dextrose (D50w Syringe) 50 ml Q15M PRN IV DECREASED GLUCOSE; Start 09/26/17 at 22:30 Glucagon (Glucagen) 1 mg Q15M PRN IM DECREASED GLUCOSE; Start 09/26/17 at 22:30 Glucose (Glutose) 15 gm Q15M PRN BUCCAL DECREASED GLUCOSE Last administered on 09/26/17 22:00; Admin Dose 15 GM; Start 09/26/17 at 22:30 Assessment/Plan Chief Complaint/Hosp Course 1. End-stage renal disease. The patient is on hemodialysis Friday, and Friday with access of a PermCath. Last hemodialysis was Friday. Plan for dialysis today. Will dialyze for 3 hours on 3 K bath, calcium 2.5. watch volume status 2. Access. The patient is status post AV graft placement. 3. Hypertension. Continue current blood pressure regimen. We will ultrafiltrate with hemodialysis. 4. Anemia. Monitor hemoglobin and hematocrit levels. Will give Epogen as needed. 5. Mineral bone disorder. Continue to monitor calcium and phosphorus levels. Will give phosphate binders as needed. 6. Diabetes. Continue current insulin regimen. Problems: WILLIAM ALMENDAREZ MD Sep 27, 2017 09:11
[2017-09-27] MEDS ORDERED: INSULIN GLARGINE [LANtus] 3 ML PEN SC ONE (09:30)
[2017-09-27] MEDS ORDERED: INSULIN ASPART [NOVOLOG] 3 ML PEN SC SCH ×2 (11:40)
--- NOTE | 2017-09-27 11:50 | PDOCDIS ---
Discharge Instructions CONDITION Patient Condition: Good HOME CARE INSTRUCTIONS: Special Diet: Diabetic ACTIVITY: Activity Restrictions: No Restrictions FOLLOW UP/APPOINTMENTS Follow-up Plan FOLLOW UP WITH YOUR PRIMARY CARE PHYSICIAN IN 1-2 WEEKS, F/U WITH YOUR HD CENTER SCHEDULED TRAVIS ARMENTA Sep 27, 2017 11:50
--- NOTE | 2017-09-27 11:55 | DS ---
Date/Time of Note Date/Time of Note DATE: 09/27/17 TIME: 11:51 Discharge Summary Admission/Discharge Info Admit Date/Time Sep 26, 2017 at 14:03 Discharge Date/Time September 27, 2017 Discharge Diagnosis 1. End-stage renal disease status post fistula placement Patient does have a history of failed fistula placement in the past Patient is status post dialysis 2 in house Follow up with neurologist and dialysis center 2. Diabetes-sugars out of control A1c 10.3 Patient sugars have been labile, patient advised to follow up with PCP for better control of sugars 3. Hypertension Continue home hydralazine 4. Anemia likely secondary to end-stage renal disease Monitor Patient Condition: Good Hospital Course Patient is 57-year-old male with a history of insulin dependent diabetes, hypertension as well as end-stage renal disease on dialysis for several years now. Patient receives dialysis Tuesdays and Saturdays, patient does have a history of failed fistula placement and had a repeat AV fistula placement with vascular surgery yesterday. Patient is a poor historian and appears to be noncompliant with his insulin regimen. His A1c was notably elevated at 10.3, his sugars were high on arrival and was given increased dose of insulin but his sugars did drop. According to patient's sister patient's sugars are known to be extremely labile, patient was told about his diabetes being uncontrolled and that he needs to follow-up with his PCP for better control. Patient was seen by nephrology and received dialysis in house. On the day of discharge patient vitals, labs and physical exam were stable he had no acute complaints questions answered. Home Meds Reported Medications Furosemide* (Furosemide*) 40 Mg Tablet, 40 MG PO DAILY, TAB 09/26/17 Gabapentin* (Gabapentin*) 300 Mg Capsule, 300 MG PO TID, #90 CAP 09/26/17 Hydralazine Hcl* (Hydralazine Hcl*) 10 Mg Tablet, 10 MG PO Q6, #120 TAB 09/26/17 Insulin Aspart* (Novolog Insulin Pen*) 100 Unit/Ml Soln, 10 UNIT SC BID, EA 09/26/17 Discontinued Reported Medications [Lantus] No Conflict Check 06/13/17 [Apidra] No Conflict Check 06/13/17 Hydralazine Hcl* (Hydralazine Hcl*) 10 Mg Tablet, 10 MG PO Q8, #120 TAB 06/13/17 Gabapentin* (Gabapentin*) 300 Mg Capsule, 300 MG PO BID, #60 CAP 06/13/17 Furosemide* (Furosemide*) 40 Mg Tablet, 40 MG PO DAILY, TAB 06/13/17 Diltiazem Hcl* (Taztia XT*) 120 Mg Capsule.sa, 120 MG PO DAILY, #30 CAP 06/13/17 Vitamin B Complex* (Vitamin B Complex*) 1 Each Tablet, 1 TAB PO DAILY, TAB 06/13/17 Follow-up Plan FOLLOW UP WITH YOUR PRIMARY CARE PHYSICIAN IN 1-2 WEEKS, F/U WITH YOUR HD CENTER SCHEDULED Primary Care Provider Not On Staff Doctor Time spent on discharge: > 30 minutes TRAVIS ARMENTA Sep 27, 2017 11:55
[2017-09-27] MEDS ORDERED: INSULIN GLARGINE [LANtus] 3 ML PEN SC SCH (20:00)
--- NOTE | 2017-09-30 14:24 | RADRPT ---
Vent Rate: 60 bpm RR Interval: 0 msec [place] Interval: 156 msec QRS Duration: 90 msec QT Interval: 480 msec QTC Interval: 480 msec P-R-T [place]: 97 - 39 - -23 degrees Normal sinus rhythm Abnormal QRS-T angle, consider primary T wave abnormality Prolonged QT Abnormal ECG Electronically Signed By: Pastor Carvalho [id number]
== END 2017-09-27 15:45 | disposition home or self-care (01) | DRG 673 ==
LOC: SDS 09:12 → REC 14:03 → SDS 14:03 → MS1 14:45
PROVIDERS: ADMIT Surgery Vascular Surgery; ATTEND Surgery Vascular Surgery
PROC: 5A1D70Z Performance of Urinary Filtration, Intermittent, Less than 6 Hours Per Day (ICD-10-PCS; 2017-09-26)
PROC: 03180JD Bypass Left Brachial Artery to Upper Arm Vein with Synthetic Substitute, Open Approach (ICD-10-PCS; principal; 2017-09-26 12:00)
DX: I12.0 Hypertensive chronic kidney disease with stage 5 chronic kidney disease or end stage renal disease (principal); N18.6 End stage renal disease; E11.22 Type 2 diabetes mellitus with diabetic chronic kidney disease; E11.65 Type 2 diabetes mellitus with hyperglycemia; D63.1 Anemia in chronic kidney disease; Z79.4 Long term (current) use of insulin; Z99.2 Dependence on renal dialysis
CPT/HCPCS: 71010; 80048; 80053; 80061; 82962; 83036; 83735; 84100; 85025; 85610; 85730; 90935; 93005; C1768; J0690; J1644; J1815; J2250; J2795; J3010